=== PATIENT | female | born 1955 | race Caucasian/White ===

== ENCOUNTER 2021-09-29 18:02 | Emergency (ER) | payer MEDICARE, OTHER ==
[~2021-09-29] VITALS: Ht 152.4 cm; Wt 54.9 kg
[2021-09-29 19:21] LABS: BASO % 0.2 % (0.0-1.0); EOS % 0.1 % (1.0-4.0); HEMATOCRIT 37.5 % (37.0-47.0); LYMPH # 0.8 10*3/uL (1.3-4.4); LYMPH % 4.7 % (27.0-41.0); MEAN CELL VOLUME 90.1 fl (81.0-99.0); MEAN CORPUSCULAR HGB 29.8 pg (27.0-31.0); MEAN CORPUSCULAR HGB CONC 33.1 g/dl (33.0-37.0); MEAN PLATELET VOLUME 11.4 fl (9.6-12.3); MONO # 1.4 10*3/uL (0.1-1.0); MONO % 7.8 % (3.0-9.0); NEUT # 15.2 10*3/uL (2.3-7.9); NEUT % 86.5 % (47.0-73.0); PLATELET COUNT AUTOMATED 221 10*3/uL (130-400); RED BLOOD COUNT 4.16 10*6/uL (4.10-5.10); RED CELL DISTRI WIDTH 12.7 % (0-14.5); WHITE BLOOD COUNT 17.6 10*3/uL (4.8-10.8)
[2021-09-29 19:44] LABS: ALKALINE PHOSPHATASE 93 U/L (45-117); BUN 21 mg/dl (7-24); CHLORIDE 99 mmol/L (98-107); LIPASE 37 U/L (73-393); POTASSIUM 3.6 mmol/L (3.5-5.1); SGOT/AST 6 IU/L (3-35); SGPT/ALT 17 U/L (12-78); SODIUM 132 mmol/L (136-145); TOTAL PROTEIN 6.9 gm/dL (6.4-8.2)
[2021-09-29 20:24] LABS: BILIRUBIN Negative (Negative); BLOOD 2+ (Negative); CLARITY Cloudy (Clear); COLOR Yellow (Yellow); GLUCOSE Negative (Negative); KETONE Trace (Negative); LEUKO ESTERASE 1+ (Negative); NITRITE Negative (Negative); SPECIFIC GRAVITY 1.015 (1.001-1.030)
[2021-09-29 20:30] LABS: ALBUMIN 2.5 gm/dl (3.1-4.5)
[2021-09-29 20:34] LABS: BACTERIA 4+; EPITHELIAL CELLS 16-20; RBC 16-20 rbc/hpf (0-2); WBC 51-100 wbc/hpf (0-5)
[2021-09-29] MEDS ORDERED: SEPTDS PO (22:37)
== END 2021-09-29 22:41 | disposition left against medical advice (07) ==
LOC: ED 18:02
PROVIDERS: Physician Assistant
DX: N39.0 Urinary tract infection, site not specified (principal); Z20.822 Contact with and (suspected) exposure to COVID-19; A41.9 Sepsis, unspecified organism

== ENCOUNTER 2023-01-12 19:38 | Emergency (ER) | payer MEDICARE ==
[~2023-01-12] VITALS: Ht 152.4 cm; Wt 49.4 kg
[~2023-01-12 19:38] MED LIST: SEPTDS PO
[2023-01-12] MEDS ORDERED: HYDROXYZINE PAM25 M1 PO (20:13)
[2023-01-12] MEDS ORDERED: ZIPRASIDONE HCL20 M1 PO (20:14)
[2023-01-12] MEDS ORDERED: LIPITOR40 MG PO (20:14)
[2023-01-12] MEDS ORDERED: NAPROSYN500 MG PO (22:11)
[2023-01-12] MEDS ORDERED: ZANAFLEX4 MG PO (22:11)
== END 2023-01-12 22:20 | disposition home or self-care (01) ==
LOC: ED 19:38
DX: G57.93 Unspecified mononeuropathy of bilateral lower limbs (principal); M54.50 Low back pain, unspecified